=== PATIENT | female | born 1985 | race Two or more races ===

== ENCOUNTER 2020-09-29 09:56 | Outpatient (CLI) | payer OTHER | END 2020-09-29 11:47 | disposition home or self-care (01) | LOC: RX STUDY 09:56 | PROVIDERS: ATTEND Obstetrics & Gynecology Reproductive Endocrinology | DX: D25.0 Submucous leiomyoma of uterus (principal) ==

== ENCOUNTER 2021-10-17 11:25 | Outpatient (CLI) | payer OTHER | END 2021-10-17 12:35 | disposition home or self-care (01) | LOC: PRENATAL 11:25 | PROVIDERS: ATTEND Obstetrics & Gynecology Maternal & Fetal Medicine | DX: O36.80X0 Pregnancy with inconclusive fetal viability, not applicable or unspecified (principal); O09.529 Supervision of elderly multigravida, unspecified trimester; O34.10 Maternal care for benign tumor of corpus uteri, unspecified trimester; Z3A.13 13 weeks gestation of pregnancy ==

== ENCOUNTER 2021-12-09 09:00 | Outpatient (CLI) | payer OTHER | END 2021-12-09 10:00 | disposition home or self-care (01) | LOC: PRENATAL 09:00 | PROVIDERS: ATTEND Obstetrics & Gynecology Maternal & Fetal Medicine | DX: O36.80X0 Pregnancy with inconclusive fetal viability, not applicable or unspecified (principal); Z36.0 Encounter for antenatal screening for chromosomal anomalies; Z3A.12 12 weeks gestation of pregnancy ==

== ENCOUNTER 2024-06-09 04:14 | Emergency (ER) | payer OTHER ==
[~2024-06-09] VITALS: Ht 170.2 cm; Wt 59.0 kg
[2024-06-09 04:31] VITALS: BP 136/80; O2SAT 99
[2024-06-09] MEDS ORDERED: GUAIFENESIN/DEXTROMETHORPHAN 10ML BLIST.PACK PO ONE (06:33)
[2024-06-09] MEDS ORDERED: CETIRIZINE HCL 5MG/5ML BLIST.PACK PO ONE (06:33)
[2024-06-09 06:53] LABS: HEMATOCRIT 40.5 % (36.0-45.00); HEMOGLOBIN 13.9 g/dL (12.0-15.00); MEAN CELL VOLUME 92.4 fL (80.00-100.00); MEAN CORPUSCULAR HEMOGLOBIN 31.8 pg (27.00-32.0); MEAN CORPUSCULAR HGB CONC 34.4 g/dl (32.0-36.0); PLATELET COUNT 226 K/uL (150-450); RED BLOOD COUNT 4.38 M/uL (4.00-6.00); RED CELL DISTRIBUTION WIDTH 13.4 % (11.5-14.5)
== END 2024-06-09 12:13 | disposition home or self-care (01) ==
LOC: ER 04:16
PROVIDERS: General Practice
DX: O99.512 Diseases of the respiratory system complicating pregnancy, second trimester (principal); J06.9 Acute upper respiratory infection, unspecified; Z3A.14 14 weeks gestation of pregnancy; Z20.822 Contact with and (suspected) exposure to COVID-19

== ENCOUNTER 2024-06-18 06:45 | Day surgery (SDC) | payer OTHER ==
[2024-06-09 13:14] LABS: HEMATOCRIT 40.1 % (36.0-45.00); HEMOGLOBIN 13.9 g/dL (12.0-15.00); MEAN CELL VOLUME 92.3 fL (80.00-100.00); MEAN CORPUSCULAR HGB CONC 34.7 g/dl (32.0-36.0); PLATELET COUNT 227 K/uL (150-450); RED BLOOD COUNT 4.34 M/uL (4.00-6.00)
[2024-06-09 13:30] LABS: INR 1.01; PARTIAL THROMBOPLASTIN TIME 27.9 SECONDS (22.0-34.0)
[2024-06-09 14:04] LABS: ALBUMIN 3.5 gm/dL (3.4-5.0); BILIRUBIN TOTAL 0.88 mg/dL (0.3-1.2); CALCIUM 9.3 mg/dL (8.5-10.1); CREATININE SERUM 0.5 mg/dL (0.55-1.02); GFR 135.96; GLOBULINA 3.7 G/DL (2.4-3.5); POTASSIUM 3.57 mEq/L (3.5-5.1); TOTAL PROTEIN 7.2 gm/dL (6.4-8.2)
[2024-06-18] MEDS ORDERED: CITRIC ACID/SODIUM CITRATE 30 ML BLIST.PACK PO ONE ×2 (08:40→08:45)
[2024-06-18] MEDS ORDERED: POVIDONE-IODINE 118 ML BOTT TOP ONE (08:47)
== END 2024-06-18 15:00 | disposition home or self-care (01) ==
LOC: CIR.AMB 06:45
PROVIDERS: ATTEND Obstetrics & Gynecology Maternal & Fetal Medicine
DX: O34.31 Maternal care for cervical incompetence, first trimester (principal); Z3A.15 15 weeks gestation of pregnancy; H52.209 Unspecified astigmatism, unspecified eye; H52.10 Myopia, unspecified eye

== ENCOUNTER 2024-08-03 07:44 | Outpatient (CLI) | payer OTHER ==
[~2024-08-03] VITALS: Ht 170.2 cm; Wt 59.0 kg
[2024-08-03 07:00] VITALS: BP 109/73; BP 98/65
[2024-08-03] MEDS ORDERED: PRENATAL TABLE1 EAC1 PO (07:59)
[2024-08-03 11:08] VITALS: BP 101/66
[2024-08-03 11:26] VITALS: BP 101/66
== END 2024-08-03 11:26 | disposition home or self-care (01) ==
LOC: OBS/DEL 07:44
PROVIDERS: ATTEND Obstetrics & Gynecology Maternal & Fetal Medicine
DX: O26.892 Other specified pregnancy related conditions, second trimester (principal); O34.32 Maternal care for cervical incompetence, second trimester; Z3A.22 22 weeks gestation of pregnancy

== ENCOUNTER 2024-09-10 12:39 | Outpatient (CLI) | payer OTHER ==
[~2024-09-10 12:39] MED LIST: PRENATAL TABLE1 EAC1 PO
== END 2024-09-10 13:50 | disposition home or self-care (01) ==
LOC: NST 12:39
PROVIDERS: ATTEND Obstetrics & Gynecology
DX: Z3A.27 27 weeks gestation of pregnancy (principal)

== ENCOUNTER → 2024-10-30 | Outpatient (CLI) | payer OTHER | END | disposition home or self-care (01) | LOC: NST 14:11 | PROVIDERS: ATTEND Obstetrics & Gynecology Gynecology | DX: Z3A.34 34 weeks gestation of pregnancy (principal) ==

== ENCOUNTER 2024-11-28 13:55 | Inpatient (IN) | payer OTHER ==
[~2024-11-28] VITALS: Ht 170.2 cm; Wt 3.2 kg
[2024-11-28 12:33] LABS: BASO % 0.5 % (0.1-1.2); EOS # 0.12 (0.04-0.54); EOS % 1.4 % (0.7-7.0); HEMATOCRIT 37.6 % (34.1-44.9); HEMOGLOBIN 12.5 g/dL (11.2-15.7); LYMPH # 1.36 (1.18-3.74); LYMPH % 16.4 % (19.3-53.1); MEAN CORPUSCULAR HEMOGLOBIN 31.4 pg (25.6-32.2); MONO # 0.98 (0.24-0.82); MONO % 11.8 % (4.7-12.5); NEUT # 5.55 (1.56-6.13); NEUT % 67.1 % (34.0-71.1); PLATELET COUNT 242 K/uL (163-369); RED BLOOD COUNT 3.98 M/uL (3.93-5.22); RED CELL DISTRIBUTION WIDTH 12.4 % (11.6-14.4)
[2024-11-28 13:00] LABS: INR < 0.93; PARTIAL THROMBOPLASTIN TIME 25.1 SECONDS (22.0-34.0)
[2024-11-28 13:08] LABS: ALBUMIN 2.5 gm/dL (3.4-5.0); BILIRUBIN TOTAL 0.64 mg/dL (0.3-1.2); CREATININE SERUM 0.49 mg/dL (0.55-1.02); GFR 139.17; GLOBULINA 3.6 G/DL (2.4-3.5); POTASSIUM 3.94 mEq/L (3.5-5.1); TOTAL PROTEIN 6.1 gm/dL (6.4-8.2)
[2024-12-03 06:26] VITALS: BP 116/82
[2024-12-03] MEDS ORDERED: OXYTOCIN 10 UNITS/ML VIAL ONE ×2 (07:12→11:39)
[2024-12-03] MEDS ORDERED: ERYTHROMYCIN BASE OPHT 1GM EACH TUBE OP ONE (07:12)
[2024-12-03] MEDS ORDERED: CITRIC ACID/SODIUM CITRATE 30 ML BLIST.PACK PO ONE (07:20)
[2024-12-03] MEDS ORDERED: CEFAZOLIN SODIUM 1,000 MG VIAL ONE (07:20)
[2024-12-03] MEDS ORDERED: MORPHINE SULFATE 4 MG/ML CARTRIDGE IV PRN (09:45)
[2024-12-03] MEDS ORDERED: OXYTOCIN 1,000 ML IV SCH (09:45)
[2024-12-03] MEDS ORDERED: MORPHINE SULFATE 4 MG/ML VIAL IV ONE (11:30)
[2024-12-03 13:14] VITALS: BP 112/72
[2024-12-03 16:21] VITALS: BP 105/73
[2024-12-03 20:00] VITALS: BP 115/73
[2024-12-04 01:29] VITALS: BP 111/71
[2024-12-04] MEDS ORDERED: KETOROLAC TROMETHAMINE 10 MG TABLET PO SCH (02:00)
[2024-12-04] MEDS ORDERED: MORPHINE SULFATE 4 MG/ML CARTRIDGE IV PRN (08:00)
[2024-12-04] MEDS ORDERED: IBUprofen 400 MG TABLET PO SCH (09:00)
[2024-12-04 09:28] LABS: BASO % 0.2 % (0.1-1.2); EOS # 0.22 (0.04-0.54); EOS % 1.2 % (0.7-7.0); HEMATOCRIT 38.8 % (34.1-44.9); HEMOGLOBIN 13.1 g/dL (11.2-15.7); LYMPH # 0.91 (1.18-3.74); LYMPH % 4.8 % (19.3-53.1); MONO # 0.88 (0.24-0.82); MONO % 4.6 % (4.7-12.5); NEUT # 16.82 (1.56-6.13); NEUT % 87.9 % (34.0-71.1); PLATELET COUNT 200 K/uL (163-369); RED CELL DISTRIBUTION WIDTH 12.9 % (11.6-14.4)
[2024-12-04 10:47] VITALS: BP 114/69
[2024-12-04 16:00] VITALS: BP 113/73
[2024-12-05 01:13] VITALS: BP 110/77
[2024-12-05] MEDS ORDERED: OxyCODONE HCL 5 MG TABLET (ROXICODONE) PO PRN (06:00)
[2024-12-05] MEDS ORDERED: IBUprofen 400 MG TABLET PO SCH (09:00)
[2024-12-05 10:04] VITALS: BP 115/85
== END 2024-12-05 13:30 | disposition home or self-care (01) | DRG 788 ==
LOC: O/R 12-03 05:33 → OB/GYN 12-03 08:15
PROVIDERS: ADMIT Obstetrics & Gynecology; ATTEND Obstetrics & Gynecology
PROC: 0DNW0ZZ Release Peritoneum, Open Approach (ICD-10-PCS; 2024-12-03)
PROC: 0UCC7ZZ Extirpation of Matter from Cervix, Via Natural or Artificial Opening (ICD-10-PCS; 2024-12-03)
PROC: 0UB90ZZ Excision of Uterus, Open Approach (ICD-10-PCS; 2024-12-03)
PROC: 4A1HXCZ Monitoring of Products of Conception, Cardiac Rate, External Approach (ICD-10-PCS; 2024-12-03)
PROC: 10D00Z1 Extraction of Products of Conception, Low, Open Approach (ICD-10-PCS; principal; 2024-12-03 11:45)
DX: O82 Encounter for cesarean delivery without indication (principal); O34.13 Maternal care for benign tumor of corpus uteri, third trimester; D25.9 Leiomyoma of uterus, unspecified; O99.892 Other specified diseases and conditions complicating childbirth; N73.6 Female pelvic peritoneal adhesions (postinfective); Z3A.39 39 weeks gestation of pregnancy; Z37.0 Single live birth